=== PATIENT | male | born 1970 | race Caucasian/White ===

== ENCOUNTER 2018-04-14 20:35 | Emergency (ER) | payer BC ==
[2018-04-14] MEDS ORDERED: Sodium Chloride 0.9% 1,000 ML ONE (21:01)
[2018-04-14] MEDS ORDERED: Metoclopramide HCl 10 MG/2 ML VIAL ONE (21:02)
[2018-04-14] MEDS ORDERED: Ketorolac Tromethamine 30 MG/ML VIAL ONE (21:02)
[2018-04-14] MEDS ORDERED: diphenhydrAMINE 50 MG/ML VIAL ONE (21:02)
== END 2018-04-14 22:50 | disposition home or self-care (01) ==
LOC: NAV ERS 20:35
DX: R51 Headache (principal); E78.5 Hyperlipidemia, unspecified; I10 Essential (primary) hypertension; F17.210 Nicotine dependence, cigarettes, uncomplicated; F41.9 Anxiety disorder, unspecified
CPT/HCPCS: 96365; 96375; J1200; J1885; J2765; J7050